=== PATIENT | male | born 1960 | race Hispanic/Latino ===

== ENCOUNTER → 2019-03-04 | Day surgery (SDC) | payer BC ==
--- NOTE | 2019-03-03 09:50 | Diagnostic Imaging Report ---
Exam: KUB - 2 views Clinical History: Preoperative Comparison: None Findings: A 9 mm calcific density overlying the right renal silhouette likely represents a right midpole renal calculus. There are phleboliths in the pelvis. Nonobstructive bowel gas pattern. Osseous structures appear unremarkable. Impression: 9 mm right midpole renal calculus. Signed by: Gillian Neumann MD on 03/03/2019 9:47 AM
[~2019-03-04] MED LIST: AMLODIPINE BESYL5 MG PO; AMLODIPINE PO; ASPIRIN81 MG PO; ATORVASTATIN CA20 MG PO; CEFTRIAXONE SOD 1 GM/NS 50 ML 50 ML IV ONE; COQ-10100 MG PO; DEXAMETHASONE SOD PHOS INJ 4 MG/ML VIAL ONE; LIDOCAINE HCL 2% LOCAL INJ 5 ML SDV VIAL INJ ONE; METOPROLOL SUCC50 MG PO; MIDAZOLAM HCL 2 MG/2 ML VIAL ONE; MULTIVITAMINS1 EAC7 PO; OMEPRAZOLE40 MG PO; ONDANSETRON HCL INJ 2MG/ML 2ML 2 MG/ML VIAL ONE; PROPOFOL IV EMULSION 10 MG/ML 20 ML VIAL ONE; SEVOFLURANE INHAL SOLN 250 ML PEN BTL ONE; VALSARTAN PO
--- OUTSIDE RECORDS SUMMARY | 2019-03-04 05:13 | XMS REPORT ---
Author Author [facility] Address Unknown Phone Unavailable Care Team Providers Care Supervisor In Charge Name Role Phone RIDGE COLÓN Unavailable Unavailable Problems This patient has no known problems. Allergies, Adverse Reactions, Alerts This patient has no known allergies or adverse reactions. Medications This patient has no known medications. Results Test Description Test Time Test Comments Text Results Atomic Results Result Comments ABDOMEN-1VIEW (KUB) 2019-03-03 09:46:00 [place] [address] Patient Name: YARELY BRASHER MR #: [id number] : 1960 Age/Sex: 58/M Req #: [id number] Adm Physician: Ordered by: RIDGE COLÓN MD Report #: [id number] Location: OR Room/Bed: Procedure: [id number] DX/ABDOMEN-1VIEW (KU) Exam Date: 03/03/19 Exam Time: 0920 REPORT STATUS: Signed Exam: KUB - 2 views Clinical History: Preoperative Comparison: None Findings: A 9 mm calcific density overlying the right renal silhouette likely represents a right midpole renal calculus. There are phleboliths in the pelvis. Nonobstructive bowel gas pattern. Osseous structures appear unremarkable. Impression: 9 mm right midpole renal calculus. Signed by: Ryan Neumann MD on 03/03/2019 9:47 AM Dictated By: RYAN NEUMANN MD 6 Transcribed By: CELSO on 03/03/19946 COPY TO: RIDGE COLÓN MD
[2019-03-04 09:00] VITALS: BP 134/81
--- NOTE | 2019-03-04 14:34 | Operative Report ---
DATE OF PROCEDURE: 03/04/2019 SURGEON: Medardo Gabriel MD PREOPERATIVE DIAGNOSIS: Right kidney stone. POSTOPERATIVE DIAGNOSIS: Right kidney stone. PROCEDURES: 1. Staged right-sided shock wave lithotripsy. 2. Supervision of fluoroscopy. ANESTHESIA: General. ESTIMATED BLOOD LOSS: Minimal. COMPLICATION: None. INDICATIONS: Mr. Manzo is a 58-year-old male with a symptomatic right-sided kidney stone. He and I had a long discussion about alternatives, risks, and benefits of doing nothing, shock wave lithotripsy, ureteroscopy, percutaneous surgery, or open surgery. He voiced understanding of the options, alternatives, the risks, and benefits and he elected to proceed. PROCEDURE IN DETAIL: After informed consent was obtained, the patient was taken to the operative suite, placed supine on the operating table. He underwent general anesthesia by the Anesthesia Service. The stone was localized in the X, Y and Z planes. Treatment was performed per treatment report. Patient tolerated the procedure well and was transported to recovery room in excellent condition. Supervision of fluoroscopy: I was present for the entire procedure and supervised fluoroscopy. There was no radiologist present. Dosage per treatment report. Medardo Gabriel MD ES/MODL /[id number]
== END | disposition home or self-care (01) ==
LOC: OR 05:10
PROVIDERS: ATTEND Urology
DX: N20.0 Calculus of kidney (principal); Z01.810 Encounter for preprocedural cardiovascular examination; Z01.818 Encounter for other preprocedural examination
CPT/HCPCS: 50590; 74018; 93005; J0696; J1100; J2001; J2250; J2405; J2704

== ENCOUNTER → 2019-04-29 | Outpatient (CLI) | payer BC ==
[~2019-04-29] MED LIST changes: -CEFTRIAXONE SOD 1 GM/NS 50 ML 50 ML IV ONE; -DEXAMETHASONE SOD PHOS INJ 4 MG/ML VIAL ONE; -LIDOCAINE HCL 2% LOCAL INJ 5 ML SDV VIAL INJ ONE; -MIDAZOLAM HCL 2 MG/2 ML VIAL ONE; -ONDANSETRON HCL INJ 2MG/ML 2ML 2 MG/ML VIAL ONE; -PROPOFOL IV EMULSION 10 MG/ML 20 ML VIAL ONE; -SEVOFLURANE INHAL SOLN 250 ML PEN BTL ONE
--- NOTE | 2019-04-29 10:51 | Diagnostic Imaging Report ---
Exam: KUB - 2 views Indication: Renal calculus Comparison: KUB of 03/03/2019 Findings: Unchanged 9 mm right midpole renal calculus. No new radiographically apparent renal calculi. Nonobstructive bowel gas pattern. The osseous structures appear unremarkable. Phleboliths in the pelvis. Impression: Unchanged 9 mm right midpole renal calculus. Signed by: Gillian Neumann MD on 04/29/2019 10:47 AM
== END ==
LOC: RAD 09:57
PROVIDERS: ATTEND Urology
DX: N20.0 Calculus of kidney (principal)
CPT/HCPCS: 74018

== ENCOUNTER → 2019-05-20 | Day surgery (SDC) | payer BC ==
[2019-05-19 08:55] LABS: BASOPHILS # (AUTO) 0.1 (0.0-0.1); BASOPHILS % 0.8 % (0.0-1.0); EOSINOPHILS # (AUTO) 0.3 (0.0-0.4); EOSINOPHILS % 3.4 % (0.0-6.0); HEMATOCRIT 44.5 % (38.2-49.6); HEMOGLOBIN 15.8 g/dL (14.0-18.0); LYMPHOCYTES % 24.5 % (18.0-39.1); MEAN CORPUSCULAR HEMOGLOBIN 32.5 pg (28-32); MEAN CORPUSCULAR HGB CONC 35.5 g/dL (31-35); MEAN CORPUSCULAR VOLUME 91.6 fL (81-99); MONOCYTES # (AUTO) 0.6 (0.2-0.8); MONOCYTES % 7.1 % (4.4-11.3); NEUTROPHILS # (AUTO) 5.3 (2.1-6.9); PLATELET COUNT 205 x10e3/uL (140-360); RED BLOOD COUNT 4.86 x10e6/uL (4.3-5.7); RED CELL DISTRIBUTION WIDTH 13.2 % (11.7-14.4)
--- NOTE | 2019-05-19 09:23 | Diagnostic Imaging Report ---
EXAMINATION: CHEST 2 VIEWS INDICATION: Pre-operative COMPARISON: None FINDINGS: LINES/TUBES:None LUNGS:The lungs are moderately inflated. No focal consolidation or pulmonary edema. PLEURA:No pleural effusion or pneumothorax. MEDIASTINUM:The cardiomediastinal silhouette appears normal in size and shape. Atherosclerotic calcifications of the thoracic aorta. BONES/SOFT TISSUES:No acute osseous injury. ABDOMEN:No free air under the diaphragm. IMPRESSION: No focal pneumonia or pulmonary edema. Signed by: Gillian Neumann MD on 05/19/2019 9:20 AM
[~2019-05-20] MED LIST changes: +CEFTRIAXONE SOD 1 GM/NS 50 ML 50 ML IV ONE; +DEXAMETHASONE SOD PHOS INJ 4 MG/ML VIAL ONE; +DIPHENHYDRAMINE HCL INJ 50 MG/ML VIAL ONE; +EPHEDRINE SULFATE INJ 50 MG/10 ML SYR ONE; +FENTANYL CITRATE/PF 100MCG/2 ML INJ ONE; +IOPAMIDOL 300MG/ML 50ML INFUS..BTL IV ONE; +LIDOCAINE HCL 2% LOCAL INJ 5 ML SDV VIAL INJ ONE; +MAGNESIUM100 MG PO; +MIDAZOLAM HCL 2 MG/2 ML VIAL ONE; +ONDANSETRON HCL INJ 2MG/ML 2ML 2 MG/ML VIAL ONE; +PROPOFOL IV EMULSION 10 MG/ML 20 ML VIAL ONE; +SEVOFLURANE INHAL SOLN 250 ML PEN BTL ONE
[2019-05-20 07:58] VITALS: BP 140/91
--- NOTE | 2019-05-20 13:08 | Operative Report ---
DATE OF PROCEDURE: 05/20/2019 SURGEON: Medardo Gabriel MD PREOPERATIVE DIAGNOSES: 1. Right kidney stone. 2. Microscopic hematuria. POSTOPERATIVE DIAGNOSES: 1. Right kidney stone. 2. Microscopic hematuria. 3. Right ureteral stricture. PROCEDURES: 1. Cystourethroscopy with left ureteral catheterization and left retrograde pyelogram (entirely separate procedure for diagnosis of microscopic hematuria). 2. Right-sided dilation of ureteral stricture, attempted ureteroscopy (entirely separate procedure for diagnosis of ureteral stricture). 3. Supervision of fluoroscopy for both ureteroscopy, ureteral dilation, and retrograde pyelograms. 4. Interpretation of retrograde pyelography. ANESTHESIA: General. ESTIMATED BLOOD LOSS: Minimal. COMPLICATIONS: None. INDICATIONS FOR PROCEDURE: Mr. Manzo is a very pleasant 59-year-old male with a large kidney stone, who had undergone a shockwave lithotripsy and had residual fragments, which past. He and I had a long discussion about alternatives, risks, and benefits of doing nothing, shock wave lithotripsy, ureteroscopy, percutaneous surgery or open surgery. He voiced understanding of the options, alternatives, risks, and benefits. He elected to proceed with ureteroscopy. PROCEDURE IN DETAIL: After informed consent was obtained, the patient was taken to the operative suite, placed supine on the operating table, and underwent general anesthesia by Anesthesia Service. The patient was placed in dorsal lithotomy position, sterilely prepped and draped in standard fashion for cystoscopy. A 22.5-Dominican cystoscope inserted per urethra. Normal urethra was noted. There was trilobar prostatic hypertrophy. Panendoscopy of the bladder revealed moderate degree trabeculation. No tumors. No stones. Both ureteral orifices were in normal anatomic location and position, and were seen to efflux clear urine. Bilateral retrograde pyelogram was performed. Left revealed delicate ureter and delicate pelvocaliceal systems. Right revealed delicate ureter. There was difficulty filling the collecting system filling defect in the lower pole. At this time, a guidewire was inserted with moderate difficulties with severe ureteric orifice stenosis on the right side. This was dilated with a 5-Dominican open-ended and attempted to be dilated with dual-lumen and ureteroscope could not passed this fearing of trauma. Retrograde pyelograms were again performed showing filling on the right lower pole collecting system at this time with no stones seen. Collecting system draining promptly under fluoroscopy. The bladder was drained. The patient was awakened from anesthesia and transported to the recovery room in excellent condition. No untoward effects noted. Supervision of fluoroscopy and interpretation of retrograde pyelography: I was present for the entire procedure and supervised fluoroscopy. There was no radiologist present. Attention was turned to the left and right ureters, catheterized with 5-Dominican open-ended catheters. Retrograde pyelogram was performed revealing delicate ureter, pelvocaliceal systems, no evidence of filling defects on the left. On the right, initially lower pole filling defect eventually filled out under time. MD ZEKE Tabares/MODL /[id number] cc: Ezra Santiago MD
== END | disposition home or self-care (01) ==
LOC: OR 05:34
PROVIDERS: ATTEND Urology
DX: N20.0 Calculus of kidney (principal); N13.5 Crossing vessel and stricture of ureter without hydronephrosis; N32.89 Other specified disorders of bladder; N40.1 Benign prostatic hyperplasia with lower urinary tract symptoms; N13.8 Other obstructive and reflux uropathy; E66.01 Morbid (severe) obesity due to excess calories; I10 Essential (primary) hypertension; I25.2 Old myocardial infarction; I25.10 Atherosclerotic heart disease of native coronary artery without angina pectoris; E78.5 Hyperlipidemia, unspecified; K21.9 Gastro-esophageal reflux disease without esophagitis; K44.9 Diaphragmatic hernia without obstruction or gangrene; M54.2 Cervicalgia; Z91.041 Radiographic dye allergy status; Z01.812 Encounter for preprocedural laboratory examination; Z01.818 Encounter for other preprocedural examination; Z79.82 Long term (current) use of aspirin; Z68.35 Body mass index [BMI] 35.0-35.9, adult; Z95.5 Presence of coronary angioplasty implant and graft
CPT/HCPCS: 36415; 52341; 71046; 74420; 85025; C1758; C1788; J0696; J1100; J1200; J2001; J2250; J2405; J2704; J3010; Q9967

== ENCOUNTER → 2020-08-31 | Outpatient (CLI) | payer BC ==
[~2020-08-31] MED LIST changes: -CEFTRIAXONE SOD 1 GM/NS 50 ML 50 ML IV ONE; -DEXAMETHASONE SOD PHOS INJ 4 MG/ML VIAL ONE; -DIPHENHYDRAMINE HCL INJ 50 MG/ML VIAL ONE; -EPHEDRINE SULFATE INJ 50 MG/10 ML SYR ONE; -FENTANYL CITRATE/PF 100MCG/2 ML INJ ONE; -IOPAMIDOL 300MG/ML 50ML INFUS..BTL IV ONE; -LIDOCAINE HCL 2% LOCAL INJ 5 ML SDV VIAL INJ ONE; -MIDAZOLAM HCL 2 MG/2 ML VIAL ONE; -ONDANSETRON HCL INJ 2MG/ML 2ML 2 MG/ML VIAL ONE; -PROPOFOL IV EMULSION 10 MG/ML 20 ML VIAL ONE; -SEVOFLURANE INHAL SOLN 250 ML PEN BTL ONE
== END ==
LOC: CT 11:38
PROVIDERS: ATTEND Internal Medicine
DX: K57.20 Diverticulitis of large intestine with perforation and abscess without bleeding (principal); N20.1 Calculus of ureter
CPT/HCPCS: 74176